=== PATIENT | female | born 1935 | race American Indian/Alaskan Native ===

== ENCOUNTER 2017-06-13 09:11 | Outpatient (CLI) | payer MEDICARE ==
--- NOTE | 2017-06-13 14:50 | XRay Report ---
XRAY RIGHT KNEE 4 THREE VIEWS: 06/13/17 CLINICAL: Right knee pain. FINDINGS: Mild osteopenia. Osteoarthritis with narrowing of the lateral joint space with small osteophytes. The medial joint space is normal. However subtle bilateral meniscal chondrocalcinosis. Patellofemoral joint osteoarthritis with large osteophytes. A large quadriceps insertion enthesophyte. Soft tissue calcifications at the lateral aspect of the knee joint and superior to the lateral femoral condyle.No joint effusion. IMPRESSION: Moderate osteoarthritis of the lateral joint space and patellofemoral joint. Quadriceps enthesopathy. Bilateral meniscal chondrocalcinosis.
== END 2017-06-13 09:12 | disposition home or self-care (01) ==
LOC: SPVIMAG 09:11
PROVIDERS: ATTEND Orthopaedic Surgery Sports Medicine
DX: M17.11 Unilateral primary osteoarthritis, right knee (principal); M11.261 Other chondrocalcinosis, right knee; M85.861 Other specified disorders of bone density and structure, right lower leg; M76.891 Other specified enthesopathies of right lower limb, excluding foot